=== PATIENT | male | born 1940 | race Caucasian/White ===

== ENCOUNTER → 2017-04-29 | Outpatient (CLI) | payer OTHER ==
[~2017-04-29] MED LIST: ASPI325T8 PO; DILT180C4 PO; HYDR25TA9 PO; LISI40TA PO; OMEP40CA5 PO; WARF-78 PO; WARF4TAB68 PO
--- NOTE | 2017-04-29 15:53 | KCIC ---
LUMBAR SPINE 2-3V History: Low back pain into the left leg for 5 days Comparison: None. Findings: 3 views of the lumbar spine are submitted. There is mild mid lumbar dextroscoliosis. Lumbar vertebral body stature is adequate. There is motion for lateral view. There is diffuse atherosclerotic calcification of the abdominal aorta. There is at least mild degenerative disc disease at L4-5 and L5-S1, to lesser degree at L3-4. There is facet degenerative change greater inferiorly of the lumbar spine. AP alignment is adequate. Impression: 1. There is multilevel mild degenerative disc disease. There is facet degenerative change greater inferiorly of the lumbar spine. There is lumbar dextroscoliosis. Electronically signed by: Johnny Schulte MD (04/29/2017 3:49 PM)
== END | disposition home or self-care (01) ==
LOC: KCIC 11:48
PROVIDERS: ATTEND Family Medicine
DX: M51.36 Other intervertebral disc degeneration, lumbar region (principal)
CPT/HCPCS: 72100

== ENCOUNTER → 2017-06-11 | Outpatient (CLI) | payer OTHER ==
--- NOTE | 2017-06-11 11:27 | CARD ---
APPROVED REPORT EXAM: Two-dimensional and M-mode echocardiogram with Doppler and color Doppler. Other Information Quality : GoodHR: 56bpm Rhythm : PVC's, Bradycardia INDICATION Atrial fibrillation RISK FACTORS Hypertension Family History 2D DIMENSIONS RVDd3.2 (2.9-3.5cm)Left Atrium(2D)3.0 (1.6-4.0cm) IVSd1.2 (0.7-1.1cm)Aortic Root(2D)3.1 (2.0-3.7cm) LVDd4.8 (3.9-5.9cm)LVOT Diameter2.4 (1.8-2.4cm) PWd1.2 (0.7-1.1cm)LVDs3.9 (2.5-4.0cm) FS (%) 19.8 %SV44.5 ml Aortic Valve AoV Peak Carmelo.142.9cm/sAoV VTI29.9cm AO Peak GR.8.2mmHgLVOT Peak Carmelo.110.9cm/s AO Mean GR.4mmHgAVA (VMAX)3.50cm2 Mitral Valve MV E Cnnqajru82.7cm/sMV E Peak Gr.3mmHg MV DECEL [id number] A Jpbvrwbg18.7cm/s MV E Mean Gr.1mmHgE/A Ratio0.8 MV A [id number] Pulmonary Valve PV Peak Tgqvioxm806.3cm/s Tricuspid Valve TR P. Fuqbluyg220oo/sTR Peak Gr.28mmHg Pulmonary Vein S1 Pfejnami50.6cm/sD2 Aylpmwmd69.5cm/s PVa [id number] LEFT VENTRICLE The left ventricle is normal size. There is mild concentric left ventricular hypertrophy. Left ventri ophelia systolic function is normal. The Ejection Fraction is 50-55% Transmitral Doppler flow pattern is Grade I-abnormal relaxation pattern. No left ventricle thrombus noted on this study. RIGHT VENTRICLE The right ventricle is normal size. There is normal right ventricular wall thickness. The right ventr icular systolic function is normal. ATRIA The left atrium size is normal. The right atrium size is normal. The interatrial septum is intact wit h no evidence for an atrial septal defect or patent foramen ovale as noted on 2-D or Doppler imaging. AORTIC VALVE The aortic valve is mildly sclerotic. The aortic valve is trileaflet. Doppler and Color Flow revealed no significant aortic regurgitation. There is no significant aortic valvular stenosis. MITRAL VALVE The mitral valve leaflets are mildly thickened. There is no evidence of mitral valve prolapse. There is no mitral valve stenosis. Doppler and Color Flow revealed trace mitral regurgitation. TRICUSPID VALVE Doppler and Color Flow revealed trace tricuspid regurgitation. The pulmonary artery systolic pressure is estimated at 31 mmHg. There is mild pulmonary hypertension. PULMONIC VALVE The pulmonary valve is not well visualized but appears to opens well. Doppler and Color Flow revealed no pulmonic valvular regurgitation. There is no pulmonic valvular stenosis by spectral Doppler. GREAT VESSELS The aortic root is normal in size. The ascending aorta is normal in size. The pulmonary artery is nor mal. The IVC is normal in size and collapses >50% with inspiration. PERICARDIAL EFFUSION There is no evidence of significant pericardial effusion. Critical Notification Critical Value: No <Conclusion> Left ventricle systolic function is normal. The Ejection Fraction is 50-55% Transmitral Doppler flow pattern is Grade I-abnormal relaxation pattern. Trace mitral regurgitation. Trace tricuspid regurgitation. The pulmonary artery systolic pressure is estimated at 31 mmHg. There is no evidence of significant pericardial effusion.
== END | disposition home or self-care (01) ==
LOC: ECHO 08:39
PROVIDERS: ATTEND Internal Medicine Cardiovascular Disease
DX: I08.1 Rheumatic disorders of both mitral and tricuspid valves (principal)
CPT/HCPCS: 93306

== ENCOUNTER → 2017-07-24 | Outpatient (CLI) | payer OTHER ==
--- NOTE | 2017-07-24 13:53 | KCIC ---
History: Left hand pain, arthritis. Comparison: None. Findings: PA, lateral, and oblique views of the left hand. No acute fracture or dislocation is identified. Old 5th metacarpal shaft fracture is seen. Mild 1st CMC degeneration is seen. There is also evidence of degenerative change involving the scaphoid and its articulation with the trapezium and trapezoid. No focal soft tissue swelling is seen. Impression: 1. No acute osseous abnormality identified. 2. 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 Electronically signed by: Napoleon King MD (07/24/2017 1:50 PM) [place] [id number]
== END | disposition home or self-care (01) ==
LOC: KCIC 10:47
PROVIDERS: ATTEND Family Medicine
DX: M19.042 Primary osteoarthritis, left hand (principal)
CPT/HCPCS: 73130

== ENCOUNTER → 2017-11-24 | Outpatient (CLI) | payer OTHER | END | disposition home or self-care (01) | LOC: KCIC 14:33 | DX: R05 Cough (principal); R06.02 Shortness of breath | CPT/HCPCS: 71046 ==

== ENCOUNTER → 2018-03-04 | Outpatient (CLI) | payer OTHER | END | disposition home or self-care (01) | LOC: KCIC 10:48 | DX: J43.9 Emphysema, unspecified (principal); Z87.891 Personal history of nicotine dependence | CPT/HCPCS: 71046 ==